=== PATIENT | male | born 2000 | race African-American/Black ===

== ENCOUNTER 2022-09-11 12:11 | Emergency (ER) | payer SELFPAY ==
[~2022-09-11] VITALS: Ht 175.3 cm; Wt 77.4 kg
[2022-09-11 12:12] VITALS: BP 127/70
[2022-09-11 13:20] LABS: APPEARANCE, URINE MANUAL HAZY (CLEAR); COLOR, URINE MANUAL YELLOW (YELLOW)
[2022-09-11 13:22] LABS: BILIRUBIN, URINE MANUAL NEGATIVE (NEGATIVE); GLUCOSE, URINE (UA) MANUAL NEGATIVE (NEGATIVE); KETONE, URINE MANUAL NEGATIVE (NEGATIVE); LEUKOCYTE ESTERASE, URINE MAN TRACE (NEGATIVE); NITRITE, URINE MANUAL NEGATIVE (NEGATIVE); PROTEIN, URINE MANUAL NEGATIVE (NEGATIVE); UROBILINOGEN, URINE MANUAL NORMAL (NORMAL)
[2022-09-11 13:27] LABS: BLOOD URINE MANUAL NEGATIVE (NEGATIVE); RBC, URINE 0-1 /hpf (0-3); SQUAMOUS EPITHELIAL CELL URINE SMALL AMOUNT /hpf (SMALL AMT)
[2022-09-11 13:28] LABS: AMORPHOUS SEDIMENT, URINE SMALL AMOUNT (NEGATIVE); BACTERIA, URINE SMALL AMOUNT; HYALINE CAST, URINE NONE SEEN /lpf (0-1); MUCUS, URINE SMALL AMOUNT (NEGATIVE)
[2022-09-11 13:50] LABS: RSV AMPLIFICATION NEGATIVE (NEGATIVE)
[2022-09-11] MEDS ORDERED: ACETAMINOPHEN 500 MG TAB PO ONE (14:05)
[2022-09-11] MEDS ORDERED: LIDOCAINE 5% (LIDODERM) PATCH TD ONE (14:05)
== END 2022-09-11 14:16 | disposition home or self-care (01) ==
LOC: M ED 12:11
DX: M54.50 Low back pain, unspecified (principal); F10.10 Alcohol abuse, uncomplicated